=== PATIENT | female | born 1945 | race Caucasian/White ===

== ENCOUNTER → 2016-08-14 | Day surgery (SDC) | payer MEDICARE ==
[~2016-08-14] MED LIST: ALPRAZolam 0.25 MG TAB ONE; BACITRACIN OINT 1 EACH PACKET TOPICAL ONE; LIDOCAINE 1% INJ 10MG/ML (20 ML MDV) ONE; LIDOCAINE 1%-EPI 1:100,000 20 ML VIAL ONE; SODIUM BICARB 4% 5 ML VIAL (0.48 MEQ/ML) ONE
--- NOTE | 2016-08-14 10:03 | MM ---
EXAMINATION TYPE: MG stereo VAD BX LT DATE OF EXAM: 08/14/2016 9:04 AM COMPARISON: Prior mammogram August 03, 2016 and older mammograms CLINICAL HISTORY: Suspicious cluster of microcalcifications left breast TECHNIQUE: Stereotactic guided core biopsy of left breast with clip placement and follow-up 2 view diagnostic mammogram. FINDINGS: The procedure of stereotactic guided core biopsy was explained to the patient. Benefits, alternatives, and risks were discussed. An informed consent was then obtained. The [facility] pathway for biopsy was chosen. Shortness pathway was medial approach. I performed the localization, then perform the remainder of the procedure. Overlying skin is cleansed. Lidocaine with bicarbonate is used as anesthetic in the skin. Lidocaine with epinephrine is used as anesthetic into the deeper tissue. A vacuum assisted biopsy gun was used to obtain multiple core samples. The patient tolerated the procedure well without any immediate complication. The patient was kept in the radiology department for short stay after the procedure and then discharged home in stable condition. Targeted calcifications are identified in specimen mammogram. Post biopsy mammogram shows the clip to appear in satisfactory position relative to the targeted area of concern on the preprocedure images. No residual calcifications are identified. IMPRESSION: SUCCESSFUL, UNCOMPLICATED STEREOTACTIC GUIDED CORE BIOPSY OF AREA OF CONCERN IN THE LEFT BREAST, FULL PATHOLOGY RESULTS TO FOLLOW. Intermediate index of suspicion noted at time of procedure. 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 Recommendation Surgical consult of the left breast. FABIANAD
== END ==
LOC: RADMAMWWP 07:08
PROVIDERS: ATTEND Surgery
DX: D05.12 Intraductal carcinoma in situ of left breast (principal); R92.1 Mammographic calcification found on diagnostic imaging of breast; R92.0 Mammographic microcalcification found on diagnostic imaging of breast; R92.8 Other abnormal and inconclusive findings on diagnostic imaging of breast
CPT/HCPCS: 88305; 19081; A4648; J2001

== ENCOUNTER 2016-09-05 07:26 | Day surgery (SDC) | payer MEDICARE ==
[2016-08-30 12:01] VITALS: BMI 26.3
[~2016-09-05 07:26] MED LIST changes: -ALPRAZolam 0.25 MG TAB ONE; -BACITRACIN OINT 1 EACH PACKET TOPICAL ONE; +CLINDAMYCIN 900 MG in DEXTROSE 5% IN WATER 50 ML IVPB STA; +DEXAMETHASONE SOD PHOSPHATE 10 MG/ML 1 ML VIAL IV ONE; +HEPARIN SODIUM,PORCINE 5,000 UNIT/ML 1 ML VIAL SQ ONE; +LIDOCAINE 1% 20 ML VIAL (10MG/ML) FOR IV START INTRADERMA PRN; -LIDOCAINE 1% INJ 10MG/ML (20 ML MDV) ONE; -LIDOCAINE 1%-EPI 1:100,000 20 ML VIAL ONE; +MIDAZOLAM 2 MG/2 ML VIAL IV PRN; +Pre Op ABX Message 1 EACH MISC MISCELLANE ONE; +SCOPOLAMINE 1.5MG/72HR PATCH TRANSDERM ONE; -SODIUM BICARB 4% 5 ML VIAL (0.48 MEQ/ML) ONE
[2016-09-05] MEDS ORDERED: ALPRAZolam 0.5 MG TAB PO ONE (08:05)
[2016-09-05] MEDS ORDERED: LIDOCAINE 1% 20 ML VIAL (10MG/ML) FOR IV START INTRADERMA ONE (08:05)
[2016-09-05] MEDS: LACTATED RINGERS 1,000 ML IV SCH ×3 (08:09→16:30)
[2016-09-05] MEDS ORDERED: SODIUM BICARB 4% 5 ML VIAL (0.48 MEQ/ML) MISCELLANE ONE (08:44)
[2016-09-05] MEDS ORDERED: LIDOCAINE 1% INJ 10MG/ML (20 ML MDV) SQ ONE (08:44)
[2016-09-05] MEDS: ONDANSETRON 4 MG/2 ML VIAL IVP ONE ×2 (09:31→14:57)
[2016-09-05 09:45] LABS: Glucose,Whole Blood 104 mg/dL (75-99)
[2016-09-05] MEDS ORDERED: BUPIVACAIN-EPI 0.25%-1:200,000 30 ML VIAL SQ ONE ×3 (11:40→12:05)
[2016-09-05] MEDS ORDERED: SUCCINYLCHOLINE CHLORIDE 100 MG/5 ML SYR IV ONE (11:45)
[2016-09-05] MEDS ORDERED: MIDAZOLAM 2 MG/2 ML VIAL ONE (11:45)
[2016-09-05] MEDS ORDERED: PROPOFOL 10 MG/ML 20 ML VIAL IV ONE (11:45)
[2016-09-05] MEDS ORDERED: ePHEDrine 50 MG/ML 1 ML AMP ONE (11:45)
[2016-09-05] MEDS ORDERED: LIDOCAINE 1% INJ 10MG/ML (20 ML MDV) ONE (11:45)
[2016-09-05] MEDS ORDERED: LACTATED RINGERS 1,000 ML IV ONE ×2 (12:20)
--- NOTE | 2016-09-05 13:03 | MM ---
EXAMINATION TYPE: MG pre op needle loc LT DATE OF EXAM: 09/05/2016 9:27 AM COMPARISON: NONE CLINICAL HISTORY: Abnormal core biopsy. TECHNIQUE: Needle localization with wire placement and surgical excision of area of concern in the left breast. FINDINGS: The procedure of needle localization with wire placement and than surgical excision was explained to the patient. Benefits, alternatives, and risks were discussed. An informed consent was then obtained. The shortest pathway for procedure was chosen. Shortest pathway was a medial to lateral approach. The overlying skin was prepped and draped in usual sterile fashion. Lidocaine buffered with bicarbonate was used as anesthetic into the skin and subcutaneous tissue up to the level of area of concern. A 5 cm needle was used. It was placed via a medial to lateral approach under mammographic guidance. Subsequent 90 degrees mammogram show the needle to be in satisfactory position relative to the targeted area. At this point, wire was placed and the needle was withdrawn. The wire was fixed to patient's skin. Images were marked for surgeon. The patient tolerated the procedure well without any immediate complication. The patient was kept in the radiology department for short stay after the procedure and then taken to surgery for surgical excision. The targeted clip and part of the hook wire are identified in specimen mammogram. The patient was kept in hospital for short stay after the procedure and then discharged home in stable condition. IMPRESSION: Successful, uncomplicated needle localization with wire placement and surgical excision of suspicious group of calcifications in the left breast, full pathology results to follow. Pathology Results: Malignant BREAST, LEFT, LUMPECTOMY: DUCTAL CARCINOMA IN SITU (DCIS), EXTENDING TO THE BLACK INKED (SUPERIOR) RESECTION MARGIN. SEE SURGICAL PATHOLOGY CANCER CASE SUMMARY AND COMMENT. Recommendation Surgical consult of the left breast. LUNA
[2016-09-05 13:10] VITALS: TEMP 97.4
[2016-09-05] MEDS: HYDROmorphone 1 MG/ML 1 ML SYRINGE IVP PRN ×2 (13:28→13:37)
[2016-09-05] MEDS ORDERED: ONDANSETRON 4 MG/2 ML VIAL IVP STA (14:55)
[2016-09-05] MEDS ORDERED: MEPERIDINE 50 MG/ML SYRINGE IVP STA (15:03)
[2016-09-05 16:31] VITALS: BP 134/76; PULSE 90; RESP 20
--- NOTE | 2016-09-12 12:19 | P.OP ---
Date of Procedure: 09/05/16 Preoperative Diagnosis: Left breast cancer- DCIS Postoperative Diagnosis: Same Procedure(s) Performed: Left breast lumpectomy with wire localization Implants: NA Anesthesia: GETA Surgeon: Caitlin Elizabeth Pathology: other Condition: stable Disposition: PACU Indications for Procedure: 71 yr old postmenopausal female presents with abnormal left breast mammogram - lower inner quadrant Stereotactic Bx: DCIS , ER+, OR+.Two surgical options discussed: breast conservation surgery(lumpectomy with radiation) and simple mastectomy . Patient elected to undergo lumpectomy . Wire localization lumpectomy discussed . Possibility of re-excision of breast tissue in case of positive margins (<2mm) .[place] lymph node bx not indicated - DCIS .Risks,benefits, potential complications including bleeding and infection. Operative Findings: Left breast wore loc lumpectomy Description of Procedure: The patient was brought to the operating room and placed in supine position with both arms out. IV sedation was given as per anesthesia team. Chlorhexidine was used to prep the skin and wire. Sterile drapes were applied. A timeout was performed to verify correct patient, correct procedure and correct side. Patient was confirmed to receive perioperative IV antibiotics, heparin 5000 units for DVT prophylaxis and bilateral SCDs. Wire localization films were reviewed. A 2 cm skin incision was made along the natural skin crease in the lower inner quadrant of the left breast at the exit site of the wire. This was deep into the subcutis tissue and Bovie electrocautery was used to dissect down to the wire. Approximately 1.5 cm deep to the skin and core of 2.5 cm breast tissue was removed incorporating the tip of the guidewire and beyond. Orientation was preserved. The specimen was excised and marked with colored ink as per protocol. This was sent off as a specimen. The resulting cavity was checked for hemostasis. Surgical clips were left in the cavity. This was closed in layers using interrupted sutures of 3-0 Vicryl to obliterate the space. Interrupted sutures of 3-0 Vicryl was also applied in the deep dermis and running 4-0 Monocryl sutures were applied in subcuticular fashion. Dermabond skin glue was applied. Sponge, instrument and needle count were correctx 2. Confirmation was received from radiology that the clip and wire was located within the excised specimen.Patient tolerated the procedure well and was taken to postanesthesia care unit in stable condition Final Pathologic Diagnosis BREAST, LEFT, LUMPECTOMY: DUCTAL CARCINOMA IN SITU (DCIS), EXTENDING TO THE BLACK INKED (SUPERIOR) RESECTION MARGIN. SEE SURGICAL PATHOLOGY CANCER CASE SUMMARY AND COMMENT. Notes SURGICAL PATHOLOGY CANCER CASE SUMMARY - DCIS OF THE BREAST (Resection) Procedure: Excision with wire guided localization. Specimen Laterality: Left. Size (Extent) of DCIS: Estimated size (extent of DCIS) measures at least 10 mm by direct measurement. Histologic Type: Ductal carcinoma in situ. Classified as Tis (DCIS). Nuclear Grade: Grade 2 (intermediate) with apocrine features. Architectural Patterns: Cribriform and papillary. Necrosis: Not identified. Margins: Black (superior inked margin positive for DCIS. All other margins appear negative. See comment. Pathologic Staging (pTNM): Primary Tumor: Ductal carcinoma in situ (pTis(DCIS)). Regional Lymph Nodes: Regional lymph nodes cannot be assessed (pNX). Distant Metastasis: Not applicable. Additional Pathologic Findings: Features focally suggestive of lymph/vascular invasion. Fibrocystic changes and previous biopsy site. Ancillary Studies: Estrogen receptor and progesterone receptor studies were previously performed on the core biopsy, [id number]. The results can be found in the Reports section of the Hospital's Electronic Medical Record under Pathology as a scanned Pathology Report. COMMENT: CK5/6 and p63 immunoperoxidase stains performed on blocks A8, A9 and A11 and evaluated with appropriate controls highlight myoepithelial cells surrounding the atypical intraductal foci. The atypical intraductal epithelial cells are immunohistochemically negative for CK 5/6. The results confirm the diagnosis of DCIS with involvement of the black inked margin. It is noted that in block A8, there is also focal blue ink superimposed on the black ink at the margin. Given orientation, the blue ink at this location is favored to represent contaminant; however, the possibility of involvement of the blue inked/anterior margin cannot be entirely excluded.
== END 2016-09-05 16:45 | disposition home or self-care (01) ==
LOC: OR 07:26
PROVIDERS: ATTEND Surgery
DX: D05.12 Intraductal carcinoma in situ of left breast (principal); E78.00 Pure hypercholesterolemia, unspecified; E11.9 Type 2 diabetes mellitus without complications; E04.1 Nontoxic single thyroid nodule; I10 Essential (primary) hypertension; Z88.5 Allergy status to narcotic agent; Z88.8 Allergy status to other drugs, medicaments and biological substances; Z91.041 Radiographic dye allergy status; Z79.82 Long term (current) use of aspirin; Z79.899 Other long term (current) drug therapy; Z86.010 Personal history of colon polyps; Z83.3 Family history of diabetes mellitus; Z78.0 Asymptomatic menopausal state; Z17.0 Estrogen receptor positive status [ER+]; Z88.0 Allergy status to penicillin
CPT/HCPCS: 76098; 88307; 88341; 88342

== ENCOUNTER 2016-09-19 10:40 | Day surgery (SDC) | payer MEDICARE ==
[2016-09-13 16:02] VITALS: BMI 25.8
[~2016-09-19 10:40] MED LIST changes: -CLINDAMYCIN 900 MG in DEXTROSE 5% IN WATER 50 ML IVPB STA; -DEXAMETHASONE SOD PHOSPHATE 10 MG/ML 1 ML VIAL IV ONE; +LACTATED RINGERS 1,000 ML IV SCH; -MIDAZOLAM 2 MG/2 ML VIAL IV PRN; +ONDANSETRON 4 MG/2 ML VIAL IVP ONE; -SCOPOLAMINE 1.5MG/72HR PATCH TRANSDERM ONE
[2016-09-19] MEDS ORDERED: SODIUM CHLORIDE 0.9% 50 ML with ceFAZolin 2,000 MG IV ONE ×4 (13:00)
[2016-09-19] MEDS ORDERED: PROPOFOL 10 MG/ML 20 ML VIAL IV ONE (13:14)
[2016-09-19] MEDS ORDERED: GLYCOPYRROLATE 0.2 MG/ML 2 ML VIAL ONE (13:14)
[2016-09-19] MEDS ORDERED: LIDOCAINE 1% INJ 10MG/ML (20 ML MDV) ONE (13:14)
[2016-09-19] MEDS ORDERED: SUCCINYLCHOLINE CHLORIDE 100 MG/5 ML SYR IV ONE (13:14)
[2016-09-19] MEDS ORDERED: KETOROLAC 30 MG/ML 1 ML VIAL ONE (13:14)
[2016-09-19] MEDS ORDERED: fentaNYL (PF) 50 MCG/ML 2 ML AMP ONE (13:14)
[2016-09-19] MEDS ORDERED: ePHEDrine 50 MG/ML 1 ML AMP ONE (13:14)
[2016-09-19] MEDS ORDERED: MIDAZOLAM 2 MG/2 ML VIAL ONE (13:14)
[2016-09-19] MEDS ORDERED: BUPIVACAIN-EPI 0.25%-1:200,000 30 ML VIAL SQ ONE ×2 (13:37)
[2016-09-19] MEDS ORDERED: LACTATED RINGERS 1,000 ML IV ONE (14:00)
[2016-09-19 14:34] VITALS: TEMP 97.8
[2016-09-19] MEDS: HYDROmorphone 1 MG/ML 1 ML SYRINGE IVP PRN ×2 (14:39→14:44)
--- NOTE | 2016-09-19 15:21 | P.OP ---
Date of Procedure: 09/19/16 Preoperative Diagnosis: Left breast DCIS Postoperative Diagnosis: Same Procedure(s) Performed: Reexcision left breast DCIS Anesthesia: MAC Surgeon: Caitlin Elizabeth Pathology: other Condition: stable Disposition: PACU Description of Procedure: 71 yr old postmenopausal female presents with abnormal left breast mammogram - lower inner quadrant Stereotactic Bx: DCIS , ER+, VT+.T. She underwent lumpectomy and superior margin was positive for DCIS . She now presents for re-excision of breast tissue for positive margins (<2mm).[place] lymph node bx not indicated - DCIS .Risks,benefits, potential complications including bleeding and infection. Description of Procedure: The patient was brought to the operating room and placed in supine position with both arms out. IV sedation was given as per anesthesia team. Chlorhexidine was used to prep the skin and wire. Sterile drapes were applied. A timeout was performed to verify correct patient, correct procedure and correct side. Patient was confirmed to receive perioperative IV antibiotics, heparin 5000 units for DVT prophylaxis and bilateral SCDs. Wire localization films were reviewed. A 3 cm skin incision was made along the natural skin crease in the lower inner quadrant of the left breast along the prior incision site. This was deep into the subcutis tissue and Bovie electrocautery was used to dissect down to the cavity. Seroma was evacuated. The superior and medial and anterior border of the cavity was excised up to 1.5 cm. It was oriented with green ink marking the cavity margins and black ink marking the new superior margin. Additional area of dense tissue identified along the superior border which was excised as additional superior margin The resulting cavity was checked for hemostasis. Surgical clips were left in the cavity. This was closed in layers using interrupted sutures of 3-0 Vicryl to obliterate the space. Interrupted sutures of 3-0 Vicryl was also applied in the deep dermis and running 4-0 Monocryl sutures were applied in subcuticular fashion. Dermabond skin glue was applied. Sponge, instrument and needle count were correctx 2. Confirmation was received from radiology that the clip and wire was located within the excised specimen.Patient tolerated the procedure well and was taken to postanesthesia care unit in stable condition Final Pathologic Diagnosis A. BREAST, LEFT, RE-EXCISION: FIBROCYSTIC CHANGES INCLUDING USUAL TYPE DUCTAL HYPERPLASIA AND CALCIFICATIONS, AND PREVIOUS BIOPSY SITE CHANGES. INTRADUCTAL PAPILLOMA. NO RESIDUAL DCIS IDENTIFIED. B. BREAST, LEFT, ADDITIONAL SUPERIOR MARGIN, EXCISION: BENIGN BREAST WITH PROLIFERATIVE FIBROCYSTIC CHANGES INCLUDING MODERATE TO FLORID USUAL TYPE DUCTAL HYPERPLASIA , CYSTS, FIBROSIS, ADENOSIS AND CALCIFICATIONS. NO DCIS IDENTIFIED.
[2016-09-19 15:29] VITALS: RESP 18
[2016-09-19 16:02] VITALS: BP 138/80; PULSE 68
== END 2016-09-19 16:32 | disposition home or self-care (01) ==
LOC: OR 10:40
PROVIDERS: ATTEND Surgery
DX: D24.2 Benign neoplasm of left breast (principal); N60.92 Unspecified benign mammary dysplasia of left breast; N60.32 Fibrosclerosis of left breast; N64.89 Other specified disorders of breast; N60.22 Fibroadenosis of left breast; I10 Essential (primary) hypertension; E78.00 Pure hypercholesterolemia, unspecified; Z79.82 Long term (current) use of aspirin; Z79.899 Other long term (current) drug therapy; Z88.0 Allergy status to penicillin; Z88.8 Allergy status to other drugs, medicaments and biological substances; Z91.041 Radiographic dye allergy status; Z79.891 Long term (current) use of opiate analgesic; E11.9 Type 2 diabetes mellitus without complications; L76.34 Postprocedural seroma of skin and subcutaneous tissue following other procedure
CPT/HCPCS: 88342; 88307; 19301; 10140; J2250; J1644; J2405; J2001; J3010; J1885; J1170; J0690; J0330; J2704

== ENCOUNTER → 2016-12-05 | Outpatient (CLI) | payer MEDICARE ==
--- NOTE | 2016-12-05 17:22 | BD ---
EXAMINATION TYPE: MG DEXA axial skeleton. DATE OF EXAM: 12/05/2016 2:29 PM COMPARISON: NONE CLINICAL HISTORY: 71 year-old female breast cancer, postmenopausal screening Height: 5 ft 4 1/2 IN Weight: 160 FRAX RISK QUESTIONS: Alcohol (3 or more units per day): NO Family History (Parent hip fracture): NO Glucocorticoids (More than 3mos): NO (Ex: prednisone, prednisolone, methylprednisolone, dexamethasone, and hydrocortisone). History of Fracture in Adulthood: NO Secondary Osteoporosis: 1. Type 1 Diabetes: NO 2. Hyperthyroidism: NO 3. Menopause before 45: YES 4. Malnutrition: NO 5. Chronic liver disease: NO Rheumatoid Arthritis: NO Current Tobacco Use: NO RISK FACTORS HISTORY OF: Active: YES Postmenopausal woman: TOTAL HYST AGE 40 Lost more than 2 inches in height since high school: YES MEDICATIONS: Additional Medications: ESTROGEN FOUZIA FOR BREAST CANCER Additional History: BREAST CANCER 2016 RADIATION EXAM MEASUREMENTS: Bone mineral densitometry was performed using the [employer] System. Bone mineral density as measured about the Lumbar spine is: ----- L1-L4(G/cm2): 1.527 T Score Values are as follows: ----- L2: 2.7 ----- L3: 3.4 ----- L4: 3.9 ----- L1-L4: 2.9 Bone mineral density has: Increased 8.0% since study of: 2003 Bone mineral density about the R hip (g/cm2): 1.275 Bone mineral density about the L hip (g/cm2): 1.271 T Score values are as follows: -----R Neck: 1.7 -----L Neck: 1.7 -----R Total: 2.4 -----L Total: 2.7 Bone mineral density has: Decreased -1.6% since study of: 2003 IMPRESSION: Normal (Values between +1 and -1 indicate normal bone mass). Consider repeating this study in 5 year s or sooner if there is some new clinical indication. NOTE: T-SCORE=SD OF THE YOUNG ADULT MEAN.
== END | disposition home or self-care (01) ==
LOC: RADBDWWP 14:09
PROVIDERS: ATTEND Internal Medicine Hematology & Oncology
DX: N95.1 Menopausal and female climacteric states (principal); C50.919 Malignant neoplasm of unspecified site of unspecified female breast; Z79.890 Hormone replacement therapy
CPT/HCPCS: 77080